=== PATIENT | male | born 1955 | race Caucasian/White ===

== ENCOUNTER → 2020-12-16 | Outpatient (CLI) | payer OTHER ==
[~2020-12-16] MED LIST: ASA81BEC PO; FISH OIL 1,0001 EAC9 PO; MULTIVITAMINS PO; NORCO5 PO; OXYBUTYNIN CHLO10 MG PO; PROTONIX40 M2 PO; ROSUVASTATIN CA20 MG PO; TAMSULOSIN HCL0.4 MG PO
== END ==
LOC: M.LAB 09:50
PROVIDERS: ATTEND Surgery
DX: Z01.812 Encounter for preprocedural laboratory examination (principal); K80.20 Calculus of gallbladder without cholecystitis without obstruction; Z20.822 Contact with and (suspected) exposure to COVID-19

== ENCOUNTER → 2020-12-20 | Day surgery (SDC) | payer OTHER ==
--- NOTE | ~2020-12-20 | OP ---
[facility] [address] [place] [address] OPERATIVE REPORT Name: CHI YANG Room: [facility] M.R.#: [id number] Admission: 12/20/20 Attend Phys: Narayan Hay Discharge: Date of : 51 Report #: [id number] THIS REPORT FOR: cc: Henrry Pennington Gregory DO ~ Patterson, Jonathan D. MD DATE OF SERVICE: 12/20/2020 PREOPERATIVE DIAGNOSIS: Symptomatic cholelithiasis. POSTOPERATIVE DIAGNOSIS: Symptomatic cholelithiasis. OPERATION: Laparoscopic cholecystectomy. SURGEON: Narayan Hay MD. ANESTHESIA: General. ESTIMATED BLOOD LOSS: Minimal. SPECIMEN: Gallbladder. DESCRIPTION OF PROCEDURE: After informed consent was obtained, the patient was brought to the operating room and placed supine. SCDs were placed and working, preoperative antibiotics were administered, general anesthesia was induced. The abdomen was prepped and draped in the usual sterile fashion. A 10 mm incision was made below the umbilicus. Fascia was incised and a trocar was placed. Pneumoperitoneum was established. Three right upper quadrant 5 mm ports were placed. Gallbladder was grasped at the fundus and retracted cephalad. Infundibulum was grasped and retracted laterally. I dissected out the cystic duct and cystic artery. Cystic plate was identified. Cystic duct and artery were clipped and ligated leaving 2 clips on the remaining duct and 1 on the remaining artery. Gallbladder was then taken off the liver bed with electrocautery. It was placed into an Endopouch and removed. The fascia was then closed with a jmlkal-pe-shwud 0 Vicryl. Skin was closed with 4-0 Monocryl. Incisions were sealed with Steri-Strips. COMPLICATIONS: None. DISPOSITION: The patient was taken to recovery in satisfactory condition. By: [id number] Hay MD /nt
[2020-12-20 11:09] LABS: HEMATOCRIT 43.2 % (42.0-52.0); HEMOGLOBIN 14.4 gm/dL (14.0-18.0); MCH 30.1 pg (26.0-34.0); MCHC 33.3 g/dL (28.0-37.0); MCV 90.3 fL (80.0-100.0); MPV 7.3 fl. (7.2-11.1); RBC 4.79 mil/uL (4.50-6.00); RDW-CV 12.6 % (10.5-14.5); WBC 6.3 thou/uL (4.0-11.0)
[2020-12-20 11:26] LABS: CALCIUM 9.7 mg/dL (8.5-10.1); CREATININE 0.9 mg/dL (0.6-1.3); POTASSIUM 4.5 mmol/L (3.5-5.1)
[2020-12-20 11:27] LABS: ALBUMIN 4.6 g/dL (3.4-5.0); TOTAL BILIRUBIN 0.6 mg/dL (<0.1-1.0); TOTAL PROTEIN 7.9 g/dL (6.4-8.2)
--- NOTE | 2020-12-24 18:06 | PATH ---
[address] [address] PATHOLOGY RPT PROCEDURE Name: OHCHI Room: [facility]..#: [id number] Admission: 12/20/20 Date of : 51 Discharge: Report #: [id number] Path Case #: [id number] [facility] Accession Number: [id number] . 01 Material submitted: . gallbladder - GALLBLADDER WITH CONTENTS . 01 Clinical history: . CHOLELITHIASIS . 02 Diagnosis: Gallbladder with contents: - Chronic cholecystitis with polypoid mucosal hyperplasia and cholelithiasis. (JALIL:marcus; 12/24/2020) [facility] [place] 1620 Local . 02 Electronically signed: . Guerrero Siddiqui MD, Pathologist NPI- [id number] . 01 Gross description: . The specimen is received in formalin, labeled "Chi [place], gallbladder with contents". Received is an intact gallbladder measuring 8.0 x 3.3 x 3.0 cm in greatest dimensions displaying a blue-acosta serosal surface. Opening the specimen reveals a velvety, bile-stained mucosa displaying several polypoid excrescences ranging in size from 0.1 to 0.2 cm, and with a gallbladder wall thickness of 0.1 cm. Calculi are present displaying a black and spiculated appearance. [employer] Intern sections, to include the proximal margin, are submitted in cassette A1, to include sections of the aforementioned polypoid excrescences. (CAA; 12/23/2020) [facility]/QA 12/23/2020 1110 Local . 02 Pathologist provided ICD-10: K80.10 . 02 CPT . 105879 Specimen Comment: A courtesy copy of this report has been sent to [phone] Specimen Comment: Report sent to Performed at: [address] [facility] [address], [place], [place] [id number] MD Laci Castanon MD Phone: [phone] Performed at: [address] [facility] [id number] [place] [address] PATHOLOGY RPT PROCEDURE Name: CHI YANG Room: [facility].#: [id number] Admission: 12/20/20 Date of : 51 Discharge: Report #: [id number] Path Case #: [id number] MD Guerrero Siddiqui MD Phone: [phone]
== END | disposition home or self-care (01) ==
LOC: M.SUR
PROVIDERS: ATTEND Surgery
DX: K80.10 Calculus of gallbladder with chronic cholecystitis without obstruction (principal); K82.8 Other specified diseases of gallbladder; R10.11 Right upper quadrant pain; Z98.890 Other specified postprocedural states; Z79.899 Other long term (current) drug therapy; Z88.0 Allergy status to penicillin